=== PATIENT | male | born 1985 | race Caucasian/White ===

== ENCOUNTER 2018-05-09 00:24 | Emergency (ER) | payer SELFPAY ==
[~2018-05-09] VITALS: Ht 172.7 cm; Wt 104.0 kg
[2018-05-09 00:27] VITALS: BP 140/85; PULSE 136; RESP 16; TEMP 99.3; O2SAT 96
== END 2018-05-09 01:42 | disposition left against medical advice (07) ==
LOC: NEPC 00:24
DX: Z03.89 Encounter for observation for other suspected diseases and conditions ruled out (principal)
CPT/HCPCS: 99281